=== PATIENT | female | born 2000 | race Caucasian/White ===

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

== ENCOUNTER 2019-01-23 11:12 | Emergency (ER) | payer MEDICAID, OTHER ==
[~2019-01-23] VITALS: Ht 157.5 cm; Wt 54.4 kg
[~2019-01-23 11:12] MED LIST changes: -ACYC400T PO; +AMOX500C2 PO; -FLUC200T38 PO; -INSU100V9 SUBCUT; -INSU10VI4 SUBCUT; -LEVO500T20 PO; -PHEN-727 PO
[2019-01-23 11:24] VITALS: BP_SYST 110
[2019-01-23] MEDS ORDERED: cefTRIAXone 1 GM VIAL IM ONE (12:00)
[2019-01-23] MEDS ORDERED: cefTRIAXone 1 GM in LIDOCAINE 1%, 20 ML MDV 2.1 ML IM ONE (12:15)
[2019-01-23 12:23] VITALS: BP_SYST 123
== END 2019-01-23 12:23 | disposition home or self-care (01) ==
LOC: SED 11:12
DX: N39.0 Urinary tract infection, site not specified (principal); R11.0 Nausea; E11.9 Type 2 diabetes mellitus without complications
CPT/HCPCS: 81002; 81025; 87086; 96372; 99283; J0696; J2001; 87186-TC

== ENCOUNTER 2019-04-18 14:58 | Emergency (ER) | payer MEDICAID ==
[~2019-04-18] VITALS: Ht 157.5 cm; Wt 47.6 kg
[2019-04-18 15:05] VITALS: BP_SYST 116
[2019-04-18] MEDS ORDERED: ONDANSETRON 4 MG ODT TAB PO ONE (15:45)
[2019-04-18 16:04] LABS: BASOPHILS % (AUTO) 0.5 % (0.0-2.0); EOSINOPHILS # (AUTO) 0.1 K/uL (0.0-0.4); EOSINOPHILS % (AUTO) 1.3 % (0.0-4.0); HEMATOCRIT 36.2 % (36-48); HEMOGLOBIN 11.2 g/dL (12.0-16.0); LYMPHOCYTES # (AUTO) 1.4 K/uL (1.0-5.5); LYMPHOCYTES % (AUTO) 26.8 % (20.5-51.5); MEAN CORPUSCULAR HEMOGLOBIN 24 pg (27-31); MEAN CORPUSCULAR HGB CONC 31 % (32-36); MEAN CORPUSCULAR VOLUME 78 fL (79.0-98.0); MONOCYTES # (AUTO) 0.3 K/uL (0.0-1.0); MONOCYTES % (AUTO) 5.7 % (1.7-9.3); NEUTROPHILS # (AUTO) 3.5 K/uL (1.8-7.7); NEUTROPHILS % (AUTO) 65.7 % (40.0-70.0); PLATELET COUNT (AUTO) 340 K/uL (130-430); RED BLOOD CELL COUNT(AUTO) 4.65 MIL/uL (4.2-6.2); RED CELL DISTRIBUTION WIDTH 17.3 % (9.0-15.0); WHITE BLOOD COUNT (AUTO) 5.4 K/uL (4.5-11.0)
[2019-04-18 16:24] LABS: BILIRUBIN,URINE NEGATIVE (NEGATIVE); BLOOD, URINE NEGATIVE (NEGATIVE); COLOR,URINE YELLOW (YELLOW); GLUCOSE,URINE 3+ (NEGATIVE); KETONES,URINE 3+ (NEGATIVE); LEUKOCYTE ESTERASE ,URINE NEGATIVE (NEGATIVE); NITRITE, URINE NEGATIVE (NEGATIVE); PH,URINE 5.5 (5.0-8.0); PROTEIN URINE NEGATIVE (NEGATIVE); UROBILINOGEN,URINE 0.2 (0.2-1.0)
[2019-04-18 16:25] LABS: INR 0.9 (0.8-1.2); PROTHROMBIN TIME 9.5 SECS (9.5-12.5)
[2019-04-18 16:32] LABS: CALCIUM 10.2 mg/dL (8.4-11.0); CREATININE 1.01 mg/dL (0.55-1.30); POTASSIUM 5.3 mmol/L (3.5-5.1)
[2019-04-18 16:37] LABS: TOTAL BILIRUBIN 0.7 mg/dL (0.0-1.0)
[2019-04-18] MEDS ORDERED: INSULIN REGULAR, HUMAN 10 UNITS/0.1 ML INJ IVP ONE ×3 (17:00→19:15)
[2019-04-18] MEDS ORDERED: NACL 0.9% 2,000 ML IV ONE (17:00)
[2019-04-18 17:28] LABS: CLARITY/URINE HAZY (CLEAR)
[2019-04-18 17:32] LABS: BACTERIA,URINE FEW /HPF (None Seen); MUCUS,URINE None Seen /LPF (None Seen); RBC,URINE 0-3 /HPF (0-3); YEAST,URINE Few /HPF (None Seen)
[2019-04-18] MEDS ORDERED: NACL 0.9% 1,000 ML IV ONE (18:00)
[2019-04-18 19:07] LABS: CALCIUM 8.2 mg/dL (8.4-11.0); CREATININE 0.76 mg/dL (0.55-1.30); POTASSIUM 3.4 mmol/L (3.5-5.1)
[2019-04-18 19:30] VITALS: BP_SYST 118
== END 2019-04-18 19:30 | disposition home or self-care (01) ==
LOC: SED 14:58
DX: E11.65 Type 2 diabetes mellitus with hyperglycemia (principal); R10.12 Left upper quadrant pain
CPT/HCPCS: 36415; 74176; 80048; 80053; 81000; 81025; 82009; 83690; 84484; 85025; 85610; 85730; 87086; 93005; 96361; 96374; 96376; 99284; J1815; J7030; Q0162; 87186-TC

== ENCOUNTER 2019-10-25 13:44 | Emergency (ER) | payer MEDICAID ==
[~2019-10-25] VITALS: Ht 157.5 cm; Wt 50.8 kg
[2019-10-25 13:45] VITALS: BP_SYST 116
[2019-10-25 15:27] VITALS: BP_SYST 114
== END 2019-10-25 15:26 | disposition home or self-care (01) ==
LOC: SED 13:44
DX: J11.1 Influenza due to unidentified influenza virus with other respiratory manifestations (principal); E10.9 Type 1 diabetes mellitus without complications
CPT/HCPCS: 99283